=== PATIENT | female | born 1965 | race Caucasian/White ===

== ENCOUNTER 2016-08-20 17:55 | Emergency (ER) | payer OTHER ==
[~2016-08-20] VITALS: Ht 160 cm; Wt 60.6 kg
[~2016-08-20 17:55] MED LIST: ABILIFY5 MG PO; ACID CONTROL150 MG PO; ADULT LOW DOSE81 M1 PO; ADVAIR 500-501 EACH IH; ADVAIR 500/501 DISK IH; ADVAIR IH; ALBUTEROL17 GM IH; ALLERGY RELIE15.8 ML BOTH NARES; ALPRAZOLAM1 MG PO; ASPIRIN81 M1 PO; ASPIRIN81 M2 PO; ASTELIN137 MCG/0. NS; ATORVASTATIN CA40 MG PO; ATORVASTATIN CA80 MG PO; Advair 500/50 Diskus IH; Aspirin E.C. PO; BLOOD PRESSURE; CHILDREN'S ASPI81 M1 PO; CLARITIN PO; CLARITIN,ALAVAR10 MG PO; CLEOCIN300 MG PO; DOLOPHINE HCL10 MG PO; FIORICET,ESG1 TABLET PO; FLEXERIL10 MG PO; HYDROCODON-ACE1 EAC9 PO; LEVAQUIN750 MG PO; LISINOPRIL; LISINOPRIL10 MG PO; METOPROLOL SUCC50 MG PO; NICOTINE PATCH1 EAC2 TD; NITROLINGUAL S4.9 GM MM; NORCO 10/3251 TABLET PO; OXYCODONE15 MG PO; PERCOCET 10-321 EACH PO; PERCOCET 5/31 TABLET PO; PRAVACHOL40 MG PO; PREDNISONE10 MG PO; PRILOSEC40 MG PO; PRINIVIL10 MG PO; RANITIDINE HCL75 MG PO; SIMVASTATIN80 MG PO; SINGULAIR10 MG PO; TOPROL XL25 MG PO; TOPROL XL50 MG PO; TOPROL XL6.25 MG PO; ULTRAM50 MG PO; VENTOLIN HFA18 GM IH; VERAMYST10 GM NS; VICODIN ES 71 TABLET PO; VICODIN HP 10-1 EACH PO; WELLBUTRIN PO; XANAX0.5 MG PO; XANAX1 MG PO; Xanax PO; ZANTAC150 MG PO; ZOCOR80 M1 PO; ZOCOR80 MG PO; Zestril,Prinivil PO; oxyCODONE PO; unable to obtain
[2016-08-20 18:57] LABS: HEMATOCRIT 44.1 % (36.0-46.0); MCH 29.1 PG (29.0-34.0); MCHC 32.9 G/DL (30.0-36.0); MCV 88.4 FL (83-99); MEAN PLAT.VOLUME 9.4 uM^3 (9.5-12.4); PLATELET COUNT 273 K/uL (156-360); RBC DIS.WIDTH-CV 12.1 % (11.8-14.6); RBC DIS.WIDTH-SD 39.2 % (39-53); RED BLOOD COUNT 4.99 M/uL (3.80-5.20)
[2016-08-20 19:07] LABS: CHLORIDE 104 mEq/L (99-109); POTASSIUM 3.7 mEq/L (3.7-5.4); SODIUM 138 mEq/L (136-147)
[2016-08-20 19:09] LABS: GLUCOSE 76 mg/dL (70-99)
[2016-08-20 19:10] LABS: ANION GAP 10 MEQ/L (2-14)
[2016-08-20 19:12] LABS: GFR ESTIMATE (CALCULATED) > 59 mL/min/
[2016-08-20 19:13] LABS: UREA NITROGEN (BUN) 12 mg/dL (9-23)
[2016-08-20 19:20] LABS: TROP-I INTERPRETATION NEGATIVE; TROPONIN-I < 0.01 ng/mL (0.0-0.30)
[2016-08-20] MEDS ORDERED: PERCOCET 5/31 TABLET PO (20:06)
[2016-08-20 20:15] VITALS: BP 120/81
== END 2016-08-20 20:16 | disposition home or self-care (01) ==
LOC: EXP 17:55 → EME 17:55 → EXP 20:16
DX: R20.2 Paresthesia of skin (principal); M79.602 Pain in left arm; M54.2 Cervicalgia; J45.909 Unspecified asthma, uncomplicated; F32.9 Major depressive disorder, single episode, unspecified; J44.9 Chronic obstructive pulmonary disease, unspecified; I10 Essential (primary) hypertension; I25.2 Old myocardial infarction; F41.9 Anxiety disorder, unspecified; I25.10 Atherosclerotic heart disease of native coronary artery without angina pectoris; Z95.5 Presence of coronary angioplasty implant and graft; Z98.1 Arthrodesis status; F17.200 Nicotine dependence, unspecified, uncomplicated; R06.00 Dyspnea, unspecified
CPT/HCPCS: 71020; 80048; 84484; 85027; 93005; 99281; 99284

== ENCOUNTER 2016-12-08 16:31 | Emergency (ER) | payer OTHER ==
[~2016-12-08] VITALS: Ht 160 cm; Wt 59.2 kg
[2016-12-08] MEDS ORDERED: ULTRAM50 MG PO (19:24)
[2016-12-08 19:38] VITALS: BP 225/116
== END 2016-12-08 19:41 | disposition home or self-care (01) ==
LOC: EME 16:31
DX: S29.9XXA Unspecified injury of thorax, initial encounter (principal); S19.9XXA Unspecified injury of neck, initial encounter; I10 Essential (primary) hypertension; F17.200 Nicotine dependence, unspecified, uncomplicated; Y04.8XXA Assault by other bodily force, initial encounter; Y07.59 Other non-family member, perpetrator of maltreatment and neglect; J44.9 Chronic obstructive pulmonary disease, unspecified; I25.10 Atherosclerotic heart disease of native coronary artery without angina pectoris; I25.2 Old myocardial infarction; B19.20 Unspecified viral hepatitis C without hepatic coma; Z91.19 Patient's noncompliance with other medical treatment and regimen; Z90.710 Acquired absence of both cervix and uterus; Z95.5 Presence of coronary angioplasty implant and graft
CPT/HCPCS: 70360; 71020; 99281; 99285

== ENCOUNTER 2017-04-22 05:23 | Emergency (ER) | payer OTHER ==
[~2017-04-22] VITALS: Ht 162.6 cm; Wt 62.3 kg
[2017-04-22 06:18] LABS: HEMATOCRIT 46.7 % (36.0-46.0); HEMOGLOBIN 16.5 G/DL (11.9-15.5); MCH 29.8 PG (29.0-34.0); MCHC 35.3 G/DL (30.0-36.0); MCV 84.4 FL (83-99); PLATELET COUNT 237 K/uL (156-360); RBC DIS.WIDTH-CV 11.8 % (11.8-14.6); RBC DIS.WIDTH-SD 35.8 % (39-53); RED BLOOD COUNT 5.53 M/uL (3.80-5.20); WHITE BLOOD COUNT 7.3 K/uL (4.1-10.2)
[2017-04-22 06:28] LABS: CHLORIDE 101 mEq/L (99-109); POTASSIUM 3.6 mEq/L (3.7-5.4); SODIUM 135 mEq/L (136-147)
[2017-04-22 06:29] LABS: GLUCOSE 108 mg/dL (70-99)
[2017-04-22 06:33] LABS: CREATININE 0.8 mg/dL (0.6-1.3); GFR ESTIMATE (CALCULATED) > 59 mL/min/
[2017-04-22 06:34] LABS: UREA NITROGEN (BUN) 10 mg/dL (9-23)
[2017-04-22] MEDS ORDERED: NORCO 5/3251 TABLET PO (07:43)
[2017-04-22] MEDS ORDERED: PROMETHAZINE HC25 M1 PO (07:43)
[2017-04-22] MEDS ORDERED: ZITHROMAX Z-PA250 MG PO (07:43)
[2017-04-22 08:01] VITALS: BP 122/88
== END 2017-04-22 08:03 | disposition home or self-care (01) ==
LOC: EME 05:23
DX: M54.5 Low back pain (principal); J44.0 Chronic obstructive pulmonary disease with (acute) lower respiratory infection; J20.9 Acute bronchitis, unspecified; F12.90 Cannabis use, unspecified, uncomplicated; F17.200 Nicotine dependence, unspecified, uncomplicated; I10 Essential (primary) hypertension; I25.2 Old myocardial infarction; B19.20 Unspecified viral hepatitis C without hepatic coma; I25.10 Atherosclerotic heart disease of native coronary artery without angina pectoris; Z79.82 Long term (current) use of aspirin; F32.9 Major depressive disorder, single episode, unspecified; F41.9 Anxiety disorder, unspecified; Z95.5 Presence of coronary angioplasty implant and graft; Z88.6 Allergy status to analgesic agent
CPT/HCPCS: 71046; 80048; 85027; 99281; 99284

== ENCOUNTER 2017-07-01 12:09 | Day surgery (SDC) | payer OTHER ==
[~2017-07-01] VITALS: Ht 162.6 cm; Wt 64.8 kg
[~2017-07-01 12:09] MED LIST changes: +ASPIR 8181 M1 PO; -CHILDREN'S ASPI81 M1 PO; +DESYREL100 MG PO; +NICODERM CQ1 EAC1 TD; +NORCO 5/3251 TABLET PO; +PROMETHAZINE HC25 M1 PO; +PROPRANOLO20 MG/5 ML PO; +VITAMIN D-32000 UNI2 PO; +WELLBUTRIN SR150 MG PO; +WOMEN'S DAILY1 EAC5 PO; +ZITHROMAX Z-PA250 MG PO
[2017-07-01 13:04] VITALS: BP 139/89
[2017-07-01 18:19] VITALS: BP 156/70
[2017-07-01 18:30] VITALS: BP 150/70
== END 2017-07-01 18:45 | disposition home or self-care (01) ==
LOC: SDC 12:09
PROVIDERS: Orthopaedic Surgery
DX: M72.0 Palmar fascial fibromatosis [Dupuytren] (principal); J45.909 Unspecified asthma, uncomplicated; I10 Essential (primary) hypertension; I25.2 Old myocardial infarction; B19.20 Unspecified viral hepatitis C without hepatic coma; M19.90 Unspecified osteoarthritis, unspecified site; Z79.82 Long term (current) use of aspirin; Z90.710 Acquired absence of both cervix and uterus; F17.210 Nicotine dependence, cigarettes, uncomplicated; F12.90 Cannabis use, unspecified, uncomplicated
CPT/HCPCS: 80306 90; 82948; 88304; J1170